=== PATIENT | male | born 1965 | race African-American/Black ===

== ENCOUNTER 2016-12-05 15:10 | Emergency (ER) | payer OTHER ==
--- NOTE | ~2016-12-05 | EKG ---
PATIENT: ALBERTO PAYTON UNIT #: [id number] Ventricular Rate: 53 BPM Atrial Rate: 53 BPM P-R Interval: 168 ms QRS Duration: 102 ms Q-T Interval: 450 ms QTC Calculation(Bezet): 422 ms P Harrah: 46 degrees Calculated R Harrah: 35 degrees Calculated T Harrah: 37 degrees Diagnosis Line: Sinus bradycardia Diagnosis Line: Otherwise normal ECG Diagnosis Line: When compared with ECG of 20-SEP-2012 05:27, Diagnosis Line: Nonspecific T wave abnormality no longer evident Diagnosis Line: in Inferior leads Diagnosis Line: Nonspecific T wave abnormality no longer evident Diagnosis Line: in Lateral leads Diagnosis Line: Confirmed by ELVIA DUBON MD ([id number]) on Diagnosis Line: 12/06/2016 10:06:17 AM INTERPRETING : HANNAH
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
[~2016-12-05 15:10] MED LIST: ALDACTONE25 MG PO; ASPIRIN81 MG PO; CATAPRES0.3 MG PO; CORDARONE200 M1 PO; ECOTRIN325 MG PO; FUROSEMIDE40 MG PO; HYDRALAZINE HCL50 MG PO; HYDROCODON-ACE1 EACH PO; IBUPROFEN PO; K-DUR20 ME1 PO; LASIX20 MG PO; LIPITOR40 MG PO; LISINOPRIL20 MG PO; LOPRESSOR PO; METOPROLOL TAR25 MG PO; NICOTINE TRANSD21 MG EXT; NITROGLYGERIN0.4 MG SL; NO MEDICATIONS; NORVASC PO; PRAVASTATIN SOD20 MG PO; PRILOSEC20 MG PO; ZESTRIL40 MG PO
== END 2016-12-05 18:50 | disposition home or self-care (01) ==
LOC: CFTX 15:10 → CED 15:10 → CFTX 16:34
DX: M25.511 Pain in right shoulder (principal); M25.512 Pain in left shoulder; F17.200 Nicotine dependence, unspecified, uncomplicated; I10 Essential (primary) hypertension
CPT/HCPCS: 73030; 93005; 96372; 99283; J1885